=== PATIENT | female | born 2000 | race Caucasian/White ===

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

== ENCOUNTER → 2018-09-11 | Outpatient (REF) | payer MEDICAID, OTHER ==
[~2018-09-11] MED LIST: BUPR200T PO; BYDU1INJ INJ; CLON-412 PO; CONC54TA4 PO; FERR325T3 PO; LAMO25TA4 PO; METF500T4 PO; NAPR-885 PO; NORT25CA2 PO; OMEP20CA4 PO; PROBCAP4 PO; PROP10TA56 PO; SENE8.6T3 PO; WELLTAB40 PO
[2018-09-11 14:23] LABS: CHLAMYDIA DNA AMPLIFICATION NEGATIVE (NEGATIVE); GC DNA AMPLIFICATION NEGATIVE (NEGATIVE)
== END ==
LOC: M SFHCWAGY 11:55
PROVIDERS: ATTEND Nurse Practitioner Family
DX: Z11.3 Encounter for screening for infections with a predominantly sexual mode of transmission (principal)

== ENCOUNTER → 2018-11-27 | Outpatient (REF) | payer MEDICAID, OTHER ==
[~2018-11-27] MED LIST changes: +METF-791 PO; -METF500T4 PO
[2018-11-27 12:35] LABS: BASO % 0.6 % (0.0-1.0); EOS # 0.2 10^3/uL (0.0-0.5); EOS % 2.4 % (0.0-3.0); HEMATOCRIT 40.8 % (36.0-47.0); HEMOGLOBIN 12.8 g/dl (12.0-15.5); LYMPH % 43.2 % (24.0-44.0); MEAN CORPUSCULAR HEMOGLOBIN 23.6 pg (27.0-33.0); MEAN CORPUSCULAR HGB CONC 31.4 g/dl (32.0-36.5); MEAN CORPUSCULAR VOLUME 75.1 fl (80.0-96.0); MONO # 0.4 10^3/uL (0.0-0.8); MONO % 6.3 % (0.0-5.0); NEUTROPHILS # 3.3 10^3/uL (1.5-8.5); NEUTROPHILS % 47.1 % (36.0-66.0); PLATELET COUNT, AUTOMATED 303 10^3/uL (150-450); RED BLOOD COUNT 5.43 10^6/uL (4.00-5.40); WHITE BLOOD COUNT 6.9 10^3/uL (4.0-10.0)
[2018-11-27 13:12] LABS: ALBUMIN 3.6 GM/DL (3.2-5.2); ALT/SGPT 23 U/L (12-78); BILIRUBIN,TOTAL 0.3 MG/DL (0.2-1.0); BLOOD UREA NITROGEN 8 MG/DL (7-18); CALCIUM LEVEL 9.5 MG/DL (8.5-10.1); CARBON DIOXIDE LEVEL 23 MEQ/L (21-32); CHLORIDE LEVEL 101 MEQ/L (98-107); CHOLESTEROL LEVEL 164 MG/DL (<200); CHOLESTEROL RISK RATIO 6.307 (<5); CREATININE FOR GFR 0.74 MG/DL (0.55-1.30); FREE T4 1.18 NG/DL (0.78-1.33); GLUCOSE, FASTING 261 MG/DL (70-100); HDL CHOLESTEROL 26 MG/DL (>40); LDL CHOLESTEROL 80 MG/DL (<100); NON-HDL-C 138 MG/DL; POTASSIUM SERUM 3.8 MEQ/L (3.5-5.1); SODIUM LEVEL 138 MEQ/L (136-145); TOTAL PROTEIN 7.1 GM/DL (6.4-8.2); TRIGLYCERIDES LEVEL 290 MG/DL (<150)
[2018-11-27 13:22] LABS: HEMOGLOBIN A1c 10.5 %
== END ==
LOC: M LAB REF 11:33
PROVIDERS: ATTEND Nurse Practitioner Family
DX: E66.9 Obesity, unspecified (principal); E11.9 Type 2 diabetes mellitus without complications

== ENCOUNTER → 2019-02-06 | Outpatient (REF) | payer OTHER, MEDICAID ==
[2019-02-06 17:14] LABS: ALBUMIN 3.3 GM/DL (3.2-5.2); ALT/SGPT 25 U/L (12-78); BILIRUBIN,TOTAL 0.4 MG/DL (0.2-1.0); BLOOD UREA NITROGEN 9 MG/DL (7-18); CALCIUM LEVEL 9.2 MG/DL (8.5-10.1); CARBON DIOXIDE LEVEL 24 MEQ/L (21-32); CHLORIDE LEVEL 104 MEQ/L (98-107); CHOLESTEROL LEVEL 168 MG/DL (<200); CREATININE FOR GFR 0.63 MG/DL (0.55-1.30); GLUCOSE, FASTING 254 MG/DL (70-100); HDL CHOLESTEROL 28 MG/DL (>40); LDL CHOLESTEROL 71 MG/DL (<100); NON-HDL-C 140 MG/DL; SODIUM LEVEL 136 MEQ/L (136-145); TOTAL PROTEIN 6.8 GM/DL (6.4-8.2); TRIGLYCERIDES LEVEL 344 MG/DL (<150)
[2019-02-06 17:28] LABS: HEMOGLOBIN A1c 10.8 %
[2019-02-06 17:36] LABS: BASO % 0.4 % (0.0-1.0); EOS # 0.1 10^3/uL (0.0-0.5); EOS % 1.3 % (0.0-3.0); HEMOGLOBIN 12.9 g/dl (12.0-15.5); LYMPH # 2.2 10^3/uL (1.5-5.0); LYMPH % 31.3 % (24.0-44.0); MEAN CORPUSCULAR HEMOGLOBIN 23.9 pg (27.0-33.0); MEAN CORPUSCULAR HGB CONC 30.7 g/dl (32.0-36.5); MEAN CORPUSCULAR VOLUME 77.8 fl (80.0-96.0); MONO # 0.4 10^3/uL (0.0-0.8); MONO % 6.1 % (0.0-5.0); NEUTROPHILS # 4.3 10^3/uL (1.5-8.5); NEUTROPHILS % 60.8 % (36.0-66.0); PLATELET COUNT, AUTOMATED 267 10^3/uL (150-450)
== END ==
LOC: M LAB REF 16:14
PROVIDERS: ATTEND Nurse Practitioner Family
DX: E11.9 Type 2 diabetes mellitus without complications (principal); E66.9 Obesity, unspecified

== ENCOUNTER → 2019-02-27 | Outpatient (REF) | payer OTHER, MEDICAID ==
[~2019-02-27] MED LIST changes: +OMEP-172 PO; -OMEP20CA4 PO
[2019-02-27 12:31] LABS: HEMOGLOBIN A1c 10.3 %
== END ==
LOC: M LAB REF 11:32
PROVIDERS: ATTEND Nurse Practitioner Family
DX: E11.9 Type 2 diabetes mellitus without complications (principal)

== ENCOUNTER → 2019-06-02 | Outpatient (REF) | payer OTHER, MEDICAID ==
[~2019-06-02] MED LIST changes: -OMEP-172 PO; +OMEP1CAP73 PO
[2019-06-02 12:29] LABS: TOTAL 25(OH) VITAMIN D 21.9 NG/ML (30.0-100.0)
[2019-06-02 12:31] LABS: ALBUMIN 3.7 GM/DL (3.2-5.2); ALT/SGPT 23 U/L (12-78); BILIRUBIN,TOTAL 0.6 MG/DL (0.2-1.0); BLOOD UREA NITROGEN 9 MG/DL (7-18); CALCIUM LEVEL 9.4 MG/DL (8.5-10.1); CARBON DIOXIDE LEVEL 22 MEQ/L (21-32); CHLORIDE LEVEL 103 MEQ/L (98-107); CHOLESTEROL LEVEL 161 MG/DL (<200); CHOLESTEROL RISK RATIO 6.192 (<5); CREATININE FOR GFR 0.74 MG/DL (0.55-1.30); GLUCOSE, FASTING 226 MG/DL (70-100); HDL CHOLESTEROL 26 MG/DL (>40); NON-HDL-C 135 MG/DL; POTASSIUM SERUM 3.6 MEQ/L (3.5-5.1); SODIUM LEVEL 135 MEQ/L (136-145); TOTAL PROTEIN 7.5 GM/DL (6.4-8.2); TRIGLYCERIDES LEVEL 487 MG/DL (<150)
== END ==
LOC: M LAB REF 11:48
PROVIDERS: ATTEND Nurse Practitioner Family
DX: Z68.42 Body mass index [BMI] 45.0-49.9, adult (principal); E66.9 Obesity, unspecified; E11.9 Type 2 diabetes mellitus without complications

== ENCOUNTER → 2020-04-04 | Outpatient (REF) | payer OTHER ==
[~2020-04-04] MED LIST changes: -BUPR200T PO; +BUPR200T2 PO; -METF-791 PO; +METF-838 PO
[2020-04-04 18:49] LABS: BASO % 0.6 % (0.0-1.0); EOS # 0.1 10^3/uL (0.0-0.5); EOS % 1.7 % (0.0-3.0); HEMATOCRIT 46.4 % (36.0-47.0); HEMOGLOBIN 14.9 g/dl (12.0-15.5); LYMPH # 2.7 10^3/uL (1.5-5.0); LYMPH % 37.4 % (24.0-44.0); MEAN CORPUSCULAR HEMOGLOBIN 25.1 pg (27.0-33.0); MEAN CORPUSCULAR HGB CONC 32.1 g/dl (32.0-36.5); MEAN CORPUSCULAR VOLUME 78.2 fl (80.0-96.0); MONO # 0.5 10^3/uL (0.0-0.8); MONO % 6.6 % (0.0-5.0); NEUTROPHILS # 3.8 10^3/uL (1.5-8.5); NEUTROPHILS % 53.4 % (36.0-66.0); PLATELET COUNT, AUTOMATED 303 10^3/uL (150-450); RED BLOOD COUNT 5.93 10^6/uL (4.00-5.40); WHITE BLOOD COUNT 7.1 10^3/uL (4.0-10.0)
[2020-04-04 19:05] LABS: HEMOGLOBIN A1c 12.3 %
[2020-04-04 20:56] LABS: ALBUMIN 3.6 GM/DL (3.2-5.2); ALT/SGPT 25 U/L (12-78); BILIRUBIN,TOTAL 0.4 MG/DL (0.2-1.0); BLOOD UREA NITROGEN 18 MG/DL (7-18); CALCIUM LEVEL 9.7 MG/DL (8.5-10.1); CARBON DIOXIDE LEVEL 26 MEQ/L (21-32); CHLORIDE LEVEL 102 MEQ/L (98-107); CHOLESTEROL LEVEL 219 MG/DL (<200); CREATININE FOR GFR 0.56 MG/DL (0.55-1.30); FREE T4 1.11 NG/DL (0.76-1.46); GLOMERULAR FILTRATION RATE > 60.0 (>60); GLUCOSE, FASTING 292 MG/DL (70-100); HDL CHOLESTEROL 30 MG/DL (>40); LDL CHOLESTEROL 124 MG/DL (<100); NON-HDL-C 189 MG/DL; POTASSIUM SERUM 4.3 MEQ/L (3.5-5.1); SODIUM LEVEL 134 MEQ/L (136-145); TOTAL PROTEIN 7.2 GM/DL (6.4-8.2); TRIGLYCERIDES LEVEL 326 MG/DL (<150)
[2020-04-04 21:00] LABS: TOTAL 25(OH) VITAMIN D 19.3 NG/ML (30.0-100.0)
== END ==
LOC: M LAB REF 16:40
PROVIDERS: ATTEND Nurse Practitioner Family
DX: E11.65 Type 2 diabetes mellitus with hyperglycemia (principal); E66.9 Obesity, unspecified; F41.9 Anxiety disorder, unspecified

== ENCOUNTER → 2020-07-08 | Outpatient (REF) | payer OTHER ==
[2020-07-08 17:14] LABS: BASO % 0.4 % (0.0-1.0); EOS # 0.1 10^3/uL (0.0-0.5); HEMATOCRIT 45.8 % (36.0-47.0); HEMOGLOBIN 14.8 g/dl (12.0-15.5); LYMPH # 4.4 10^3/uL (1.5-5.0); LYMPH % 48.9 % (24.0-44.0); MEAN CORPUSCULAR HEMOGLOBIN 25.5 pg (27.0-33.0); MEAN CORPUSCULAR HGB CONC 32.3 g/dl (32.0-36.5); MEAN CORPUSCULAR VOLUME 78.8 fl (80.0-96.0); MONO # 0.6 10^3/uL (0.0-0.8); NEUTROPHILS # 3.8 10^3/uL (1.5-8.5); NEUTROPHILS % 42.4 % (36.0-66.0); PLATELET COUNT, AUTOMATED 315 10^3/uL (150-450); RED BLOOD COUNT 5.81 10^6/uL (4.00-5.40); WHITE BLOOD COUNT 9.1 10^3/uL (4.0-10.0)
[2020-07-08 17:45] LABS: ALT/SGPT 19 U/L (12-78); BILIRUBIN,TOTAL 0.9 MG/DL (0.2-1.0); BLOOD UREA NITROGEN 6 MG/DL (7-18); CALCIUM LEVEL 9.8 MG/DL (8.5-10.1); CARBON DIOXIDE LEVEL 26 MEQ/L (21-32); CHLORIDE LEVEL 103 MEQ/L (98-107); CHOLESTEROL LEVEL 201 MG/DL (<200); CHOLESTEROL RISK RATIO 6.931 (<5); CREATININE FOR GFR 0.64 MG/DL (0.55-1.30); GLOMERULAR FILTRATION RATE > 60.0 (>60); GLUCOSE, FASTING 231 MG/DL (70-100); HDL CHOLESTEROL 29 MG/DL (>40); LDL CHOLESTEROL 141 MG/DL (<100); NON-HDL-C 172 MG/DL; POTASSIUM SERUM 4.1 MEQ/L (3.5-5.1); SODIUM LEVEL 137 MEQ/L (136-145); TOTAL PROTEIN 7.8 GM/DL (6.4-8.2); TRIGLYCERIDES LEVEL 154 MG/DL (<150)
[2020-07-08 18:26] LABS: HEMOGLOBIN A1c 9.4 %
== END ==
LOC: M LAB REF 16:34
PROVIDERS: ATTEND Nurse Practitioner Family
DX: E11.65 Type 2 diabetes mellitus with hyperglycemia (principal); E66.9 Obesity, unspecified

== ENCOUNTER 2023-12-25 16:29 | Emergency (ER) | payer OTHER ==
[~2023-12-25] VITALS: Ht 172.7 cm; Wt 116.2 kg
[~2023-12-25 16:29] MED LIST changes: -BUPR200T2 PO; +BUPR200T41 PO
[2023-12-25] MEDS: BOOSTRIX VACCINE (TETANUS/DIPHTH/ACEL. PERTUSSIS) 0.5ML SYR IM ONE (17:31)
[2023-12-25] MEDS: LIDOCAINE 1% MDV 20ML VIAL SC ONE (21:55)
[2023-12-25] MEDS ORDERED: CEPH500C PO (22:29)
[2023-12-25] MEDS: CEPHALEXIN 500 MG CAP PO ONE (22:33)
[2023-12-25 22:34] VITALS: BP 170/83; TEMP 99; O2SAT 97
[2023-12-25] MEDS: ACETAMINOPHEN 500 MG TAB PO ONE (22:40)
== END 2023-12-25 22:47 | disposition home or self-care (01) ==
LOC: M ED 16:29
DX: S91.312A Laceration without foreign body, left foot, initial encounter (principal); Y92.019 Unspecified place in single-family (private) house as the place of occurrence of the external cause; Y93.9 Activity, unspecified; Y99.9 Unspecified external cause status; E11.9 Type 2 diabetes mellitus without complications; Z23 Encounter for immunization; Z79.2 Long term (current) use of antibiotics

== ENCOUNTER 2024-09-23 18:23 | Emergency (ER) | payer OTHER ==
[~2024-09-23] VITALS: Ht 172.7 cm; Wt 124.0 kg
[~2024-09-23 18:23] MED LIST changes: +CEPH500C PO; +LAMO-18 PO; -LAMO25TA4 PO
[2024-09-23 19:10] LABS: PLATELET COUNT, AUTOMATED 320 10^3/uL (150-450)
[2024-09-23 19:19] LABS: AMPHETAMINES LEVEL URINE NEGATIVE (NEGATIVE); BARBITURATES URINE NEGATIVE (NEGATIVE); BENZODIAZEPINES URINE NEGATIVE (NEGATIVE); COCAINE METABOLITE URINE NEGATIVE (NEGATIVE); METHADONE URINE NEGATIVE (NEGATIVE); OPIATES URINE NEGATIVE (NEGATIVE); PHENCYCLIDINE URINE NEGATIVE (NEGATIVE)
[2024-09-23 19:25] LABS: CANNABINOIDS URINE POSITIVE (NEGATIVE)
[2024-09-23 19:35] LABS: ETHYL ALCOHOL (ETHANOL) < 0.003 % (0.000-0.010)
[2024-09-23 19:36] LABS: SALICYLATE LEVEL < 3.0 MG/DL (<30)
[2024-09-23 19:37] LABS: ALT/SGPT 22 U/L (7.0-40); AST/SGOT 15 U/L (<34); CALCIUM LEVEL 9.8 MG/DL (8.5-10.1); CARBON DIOXIDE LEVEL 20 MMOL/L (20-31); CHLORIDE LEVEL 105 MMOL/L (98-107); CREATININE FOR GFR 0.70 MG/DL (0.55-1.30); GLOMERULAR FILTRATION RATE > 90.0 (>60); POTASSIUM SERUM 3.8 MMOL/L (3.5-5.1); SODIUM LEVEL 141 MMOL/L (136-145)
[2024-09-23 21:42] LABS: APPEARANCE, URINE HAZY (CLEAR); BACTERIA, URINE AUTO NEGATIVE (NEGATIVE); BILIRUBIN, URINE AUTO NEGATIVE (NEGATIVE); BLOOD, URINE BLOOD NEGATIVE (NEGATIVE); GLUCOSE, URINE (UA) AUTO 3+ mg/dL (NEGATIVE); KETONE, URINE AUTO 2+ mg/dL (NEGATIVE); LEUKOCYTE ESTERASE, URINE AUTO NEGATIVE (NEGATIVE); MUCUS, URINE SMALL (NEGATIVE); NITRITE, URINE AUTO NEGATIVE (NEGATIVE); PROTEIN, URINE AUTO 2+ mg/dL (NEGATIVE); RBC, URINE AUTO 1 /HPF (0-3); SPECIFIC GRAVITY URINE AUTO 1.023 (1.002-1.035); SQUAMOUS EPITHELIAL CELL UR AU 4 /HPF (0-6); UROBILINOGEN, URINE AUTO 0.2 mg/dL (0.0-2.0); WBC, URINE AUTO 4 /HPF (0-3)
[2024-09-23 22:07] VITALS: BP 132/72; TEMP 98.7; O2SAT 98
== END 2024-09-23 22:08 | disposition home or self-care (01) ==
LOC: M ED 18:23
DX: F43.0 Acute stress reaction (principal); F29 Unspecified psychosis not due to a substance or known physiological condition; F43.10 Post-traumatic stress disorder, unspecified; F12.10 Cannabis abuse, uncomplicated; Z79.2 Long term (current) use of antibiotics